=== PATIENT | male | born 1940 | race Caucasian/White ===

== ENCOUNTER → 2017-01-23 | Outpatient (CLI) | payer OTHER ==
[~2017-01-23] MED LIST: ASPI81TA11 PO; ATOR40TA16 PO; CARV12.52 PO; CLOP75TA PO; FENT75DI T-DERMAL; FURO40TA PO; ISOS60TA PO; METF850T PO; NITR0.4S SL; OSEL75 PO; PERC10TA27 PO; TEMA30CA PO
--- NOTE | 2017-01-23 11:40 | RADRPT ---
EXAM DATE/TIME: 01/23/2017 00:00 [facility] COMPARISON: CT ABDOMEN & PELVIS W/O CONTRAST, February 12, 2013, 19:10. INDICATIONS : Peripheral vascular disease TECHNIQUE: Five-station segmental examination of the lower extremities was performed pre and post extercise. Pulsed-cuff waveform tracings and pressures were recorded. Ankle-brachial indices and toe-brachial indices were calculated. PRESSURES (mmHg): Pre Exercise: Brachial (arm): Right 137 Left 147 Lower Thigh: Right 188 Left 206 Calf: Right 183 Left CNO >220 Ankle: Right 193 Left 192 GIORGIO: Right 1.31 Left 1.31 TBI: Right 0.42 Left 0.75 Post Exercise: Brachial (arm): Left 172 Not applicable Ankle: Right 216 Left 209 PULSED CUFF WAVEFORMS: Demonstrate normal amplitude bilaterally. CONCLUSION: 1. Mildly diminished preexercise TBI on the right. 2. The ABIs are elevated both pre-and post exercise. There is a fairly normal-appearing waveform. Thi s would suggest possibility of densely calcified, non-compressible vessels. This limits the sensitivi ty of GIORGIO testing. CT angiography with runoff could be performed for more definitive assessment. Mark Mims MD on January 23, 2017 at 11:36 Board Certified Radiologist. This report was verified electronically.
== END ==
LOC: HCAV 10:26
DX: I73.9 Peripheral vascular disease, unspecified (principal)
CPT/HCPCS: 93924

== ENCOUNTER 2017-04-08 08:04 | Emergency (ER) | payer OTHER ==
[~2017-04-08] VITALS: Ht 182.9 cm; Wt 87.6 kg
[2017-04-08 08:08] VITALS: BP 138/83; PULSE 74; RESP 16; TEMP 98.1; O2SAT 95
--- NOTE | 2017-04-08 08:29 | PD ---
HPI Chief Complaint: Back/ Neck Pain or Injury Time Seen by Provider: 08:17 Travel History International Travel<30 days: No Contact w/Intl Traveler<30days: No Traveled to known affect area: No History of Present Illness HPI This 77-year-old man who presents to the Department of low back pain. Is a history of chronic low back problems, uses fentanyl patch and takes Lortab daily for back pain, multiple back surgeries. He states yesterday he was helping pull a tree down pulling on the applying tension to a rope when it snapped and he fell backward landing on his back. He has pain on his left flank. Did not hit his head. He is on aspirin and Plavix. States today's having worsening back pain today came to the emergency department. No numbness or tingling or weakness. No gait problems. No other complaints. History Past Medical History Narrative Medical CAD, CABG Diabetes Hyperlipidemia Hypertension Tetanus Vaccination: Unknown Social History Alcohol Use: Yes (OCCASIONALLY beer) Tobacco Use: No (FORMER 1 PPD; QUIT ) Allergies-Medications (Allergen,Severity, Reaction): Coded Allergies: Pseudoephedrine (Verified Allergy, Severe, INAILITY TO URINATE, 04/08/17) Reported Meds & Prescriptions Reported Meds & Active Scripts Active Reported Aspirin EC (Aspirin) 81 Mg Tabdr 81 Mg PO DAILY Temazepam 30 Mg Cap 30 Mg PO HS PRN Percocet (Oxycodone-Acetaminophen) 10-325 mg Tab 1 Tab PO Q6H PRN Nitrostat SL (Nitroglycerin) 0.4 Mg Subl 0.4 Mg SL DIRECTED PRN 1 tablet under the tongue as needed for chest pain. Repeat every 5 minutes for a total of 3 DOSES or call 911 if NO relief. Metformin (Metformin HCl) 850 Mg Tab 850 Mg PO TIDPC With meals Isosorbide Mononitrate ER (Isosorbide Mononitrate) 60 Mg Tab 60 Mg PO DAILY Furosemide 40 Mg Tab 40 Mg PO EVERY OTHER DAY PRN Fentanyl Patch 72 HR (Fentanyl) 75 Mcg/Hr Patch 100 Mcg T-DERMAL Q72H Remove old patch when new one placed. Clopidogrel (Clopidogrel Bisulfate) 75 Mg Tab 75 Mg PO DAILY Carvedilol 12.5 Mg Tab 12.5 Mg PO BID Atorvastatin (Atorvastatin Calcium) 40 Mg Tab 40 Mg PO HS Review of Systems Except as stated in HPI: all other systems reviewed are Neg Physical Exam Narrative GENERAL: Well-appearing 77-year-old man, no acute distress. SKIN: Focused skin assessment warm/dry. HEAD: Atraumatic. Normocephalic. EYES: Pupils equal and round. No scleral icterus. No injection or drainage. NECK: Trachea midline. Moves neck freely. CARDIOVASCULAR: Regular rate and rhythm. No murmur appreciated. RESPIRATORY: No accessory muscle use. Clear to auscultation. Breath sounds equal bilaterally. GASTROINTESTINAL: Abdomen soft, non-tender, nondistended. Hepatic and splenic margins not palpable. MUSCULOSKELETAL: No obvious deformities. Multiple surgical scars in the back. No step-offs deformities tenderness or ecchymosis. Minimal tenderness in the left flank. Data Data Last Documented VS Vital Signs Date Time Temp Pulse Resp B/P Pulse Ox O2 Delivery O2 Flow Rate FiO2 04/08/17 08:08 98.1 74 16 138/83 95 Orders Ketorolac Inj (Toradol Inj) (04/08/17 08:30) Spine, Lumbar Comp W/Obliq (04/08/17 ) [facility] Medical Decision Making Medical Screen Exam Complete: Yes Emergency Medical Condition: Yes Interpretation(s) X-ray lumbar spine: Postoperative change with transpedicular screws extending from L2 to L5 with stabilization devices. Severe degenerative change at the L1- L2 and L5-S1 levels. One centimeters retrolisthesis of L5 on S1. Cocktail deformities at the L2-L3 and L3-L4 levels likely from remodeling around stabilization devices. Differential Diagnosis Back strain or sprain, contusion, fracture, other Narrative Course Medical decision making INITIAL: This is a well 77-year-old male with a history of back problems presents with back pain after he fell on his back yesterday. He looks overall well. No numbness tingling weakness or other concerning symptoms. We'll check x-rays, likely negative. Recommend outpatient follow-up. Diagnosis Primary Impression: Back pain Additional Instructions: Continue Lortab and fentanyl as previously prescribed. Follow up with her primary doctor in the next 2-4 days. Return to the emergency department for any new or worsening symptoms. Med/Other Pt SpecificInfo: No Change to Meds Disposition: 01 DISCHARGE HOME Condition: Stable Dionisio Callejas MD Apr 08, 2017 08:29
[2017-04-08] MEDS ORDERED: KETOROLAC TROMETHAMINE 60 MG/2 ML (IM) VIAL IM ONE (08:30)
--- NOTE | 2017-04-08 09:33 | RADHPO ---
EXAM DATE/TIME: 04/08/2017 08:33 [facility] COMPARISON: SPINE LUMBAR LTD (AP & LAT), September 26, 2015, 12:54. INDICATIONS : Back pain post fall. MEDICAL HISTORY : Hypercholesterolemia. Chronic obstructive pulmonary disease. Carcinoma, prostatic. WI. Hypertensi on. CHF. Hepatitis SURGICAL HISTORY : Tonsillectomy. Fusion, lumbar. Prostatectomy. CABG. Right rotator cuff. ENCOUNTER: Initial ACUITY: 1 day PAIN SCORE: 8/10 LOCATION: Lumbar spine FINDINGS: The patient has transpedicular screws at the L2, L3, L4 and L5 levels. There are stabilization devic es at the L2-L3, L3-L4 and L4-L5 disc levels. .there is disc space narrowing at the L5-S1 level. Th ere is posterior subluxation of L5 on S1 in the order of 1 cm. The lumbar vertebral bodies are eitan lly aligned. There is disc space narrowing and subchondral sclerosis at the L1-L2 level. There are prominent osteophytes at this level. There is also disc space narrowing, subchondral sclerosis at os teophytes at the L5-S1 level. The sacroiliac joints are intact. Vascular calcifications are seen. T here does appear to be some concavity to the end plates at the inferior aspect of L2, superior aspect of L3, inferior aspect of L3 and superior aspect of L4. These are likely chronic remodeling around the stabilization devices at these disc levels. CONCLUSION: 1. Postoperative change with transpedicular screws extending from L2 through L5 with stabilization d evices. 2. Severe degenerative change at the L1-L2 and L5-S1 levels. There is 1 cm of retrolisthesis of L5 on S1. 3. Concave deformities at the L2-L3 and L3-L4 levels likely from remodeling around the stabilization devices. Alvarado Stevens MD on April 08, 2017 at 9:10 Board Certified Radiologist. This report was verified electronically.
== END 2017-04-08 09:48 | disposition home or self-care (01) ==
LOC: PHED 08:04
DX: M54.9 Dorsalgia, unspecified (principal); I25.10 Atherosclerotic heart disease of native coronary artery without angina pectoris; E11.9 Type 2 diabetes mellitus without complications; E78.5 Hyperlipidemia, unspecified; I10 Essential (primary) hypertension; Z95.1 Presence of aortocoronary bypass graft; Z87.891 Personal history of nicotine dependence; W18.30XA Fall on same level, unspecified, initial encounter; Y93.H9 Activity, other involving exterior property and land maintenance, building and construction; Y92.096 Garden or yard of other non-institutional residence as the place of occurrence of the external cause; Y99.8 Other external cause status
CPT/HCPCS: 72110; 96372; 99284; J1885

== ENCOUNTER 2018-03-09 21:03 | Observation (INO) | payer OTHER ==
[~2018-03-09] VITALS: Ht 180.3 cm; Wt 85.6 kg
[~2018-03-09 21:03] MED LIST changes: -ASPI81TA11 PO; +ASPI81TA23 PO; -OSEL75 PO
[2018-03-09 21:15] VITALS: BP 177/96; PULSE 79; RESP 16; TEMP 99.1; O2SAT 96
[2018-03-09 21:20] VITALS: BP 177/96; PULSE 80; RESP 16; O2SAT 96
[2018-03-09] MEDS ORDERED: SODIUM CHLORIDE 0.9% FLUSH 10 ML FLUSH IVF PRN (21:45)
[2018-03-09 21:54] LABS: AUTOMATED NEUTROPHIL # 3.5 TH/MM3 (1.8-7.7); BASOPHIL # 0.2 TH/MM3 (0-0.2); BASOPHIL % 3.2 % (0.0-2.0); EOSINOPHIL # 0.3 TH/MM3 (0-0.4); EOSINOPHIL % 4.4 % (0.0-4.0); HEMATOCRIT 37.8 % (39.0-51.0); HEMOGLOBIN 12.1 GM/DL (13.0-17.0); LYMPHOCYTE # 1.6 TH/MM3 (1.0-4.8); MEAN CELL VOLUME 89.6 FL (80.0-100.0); MEAN CORPUSCULAR HEMOGLOBIN 28.6 PG (27.0-34.0); MEAN PLATELET VOLUME 10.2 FL (7.0-11.0); MONO % 10.6 % (0.0-8.0); MONOCYTE # 0.7 TH/MM3 (0-0.9); NEUT % 55.8 % (16.0-70.0); PLATELET COUNT 144 TH/MM3 (150-450); RED BLOOD COUNT 4.23 MIL/MM3 (4.50-5.90); RED CELL DISTRIBUTION WIDTH 13.8 % (11.6-17.2); WHITE BLOOD COUNT 6.3 TH/MM3 (4.0-11.0)
--- NOTE | 2018-03-09 21:54 | RADRPT ---
EXAM DATE/TIME: 03/09/2018 21:40 [facility] COMPARISON: CHEST SINGLE AP, October 19, 2016, 15:04. INDICATIONS : Chest pain. MEDICAL HISTORY : None. Hypertension. Congestive heart failure. Left eye macular degeneration, SURGICAL HISTORY : CABG. ENCOUNTER: Initial ACUITY: 2 days PAIN SCORE: 2/10 LOCATION: Bilateral chest FINDINGS: Surgical sutures of the hysterotomy and prior cryosurgery. Mild diffuse interstitial prominence witho ut new focal pleural or parenchymal opacities. Cardiomediastinal contours are stable. Remainder of th e exam is unchanged. CONCLUSION: 1. No acute abnormality or significant interval change. Bert Forrester MD on March 09, 2018 at 21:52 Board Certified Radiologist. This report was verified electronically.
[2018-03-09 21:56] VITALS: BP_SYST 144; BP_SYST 157; BP_DIAS 75; PULSE 81; RESP 16; O2SAT 94
[2018-03-09 22:01] LABS: CHLORIDE 101 MEQ/L (98-107); SODIUM (NA) 136 MEQ/L (136-145)
[2018-03-09 22:03] LABS: CALCIUM 9.8 MG/DL (8.5-10.1)
[2018-03-09 22:04] LABS: BICARBONATE 29.1 MEQ/L (21.0-32.0); BLOOD UREA NITROGEN 19 MG/DL (7-18); GLUCOSE,RANDOM 145 MG/DL (74-106); MAGNESIUM 1.7 MG/DL (1.5-2.5)
[2018-03-09 22:07] LABS: CREATININE 0.87 MG/DL (0.60-1.30); GLOMERULAR FILTRATION RATE 85 ML/MIN (>89); INTERNATIONAL NORMALIZED RATIO 1.1 RATIO; PROTHROMBIN TIME - PATIENT 11.4 SEC (9.8-11.6)
[2018-03-09 22:12] LABS: TROPONIN I LESS THAN 0.02 NG/ML (0.02-0.05)
[2018-03-09 22:22] VITALS: BP 152/83; PULSE 76; RESP 16; O2SAT 95
[2018-03-09 23:24] VITALS: BP 153/80; PULSE 73; RESP 16; O2SAT 96
[2018-03-10] VITALS (12 sets, daily range): BP systolic 91–184; BP diastolic 9–96; PULSE 65–84; RESP 16–20; TEMP 96.3–97.6; O2SAT 94–97
[2018-03-10] MEDS ORDERED: SODIUM CHLORIDE 0.9% FLUSH 10 ML FLUSH IV FLUSH PRN (00:15)
[2018-03-10] MEDS ORDERED: ALPRAZolam 0.25 MG TAB PO PRN (00:15)
[2018-03-10] MEDS ORDERED: NITROGLYCERIN 0.4 MG SL 25 TABS/BTL SL PRN (00:15)
[2018-03-10 00:59] LABS: TROPONIN I LESS THAN 0.02 NG/ML (0.02-0.05)
[2018-03-10 03:37] LABS: TROPONIN I LESS THAN 0.02 NG/ML (0.02-0.05)
--- NOTE | 2018-03-10 07:59 | EKG ---
Date Performed: 03/10/2018 Time Performed: 03:31:31 PTAGE: 78 years EKG: Sinus rhythm INFERIOR MYOCARDIAL INFARCTION ABNORMAL ECG PREVIOUS TRACING : 03/10/2018 00.19 No significant change from previous tracing noted. DOCTOR: Jamey Augustin Interpretating Date/Time 03/10/2018 07:57:49
--- NOTE | 2018-03-10 08:01 | EKG ---
Date Performed: 03/10/2018 Time Performed: 00:19:52 PTAGE: 78 years EKG: Sinus rhythm POSSIBLE RIGHT VENTRICULAR CONDUCTION DELAY INFERIOR MYOCARDIAL INFARCTION ABNORMAL ECG PREVIOUS TRACING : 03/09/2018 21.09 No significant change from previous tracing noted. DOCTOR: Jamey Augustin Interpretating Date/Time 03/10/2018 08:00:39
--- NOTE | 2018-03-10 08:07 | EKG ---
Date Performed: 03/09/2018 Time Performed: 21:09:19 PTAGE: 78 years EKG: Sinus rhythm INFERIOR MYOCARDIAL INFARCTION ABNORMAL ECG PREVIOUS TRACING : 10/19/2016 15.32 No significant change from previous tracing noted. DOCTOR: Jamey Augustin Interpretating Date/Time 03/10/2018 08:06:06
[2018-03-10] MEDS: SODIUM CHLORIDE 0.9% FLUSH 10 ML FLUSH IV FLUSH SCH ×2 (08:38→22:37)
--- NOTE | 2018-03-10 09:18 | HHI.HP ---
[facility] Service [facility] Primary Care Physician Jennifer Rodriguez MD Admission Diagnosis Chest pain Diagnoses: (1) Chest pain Chief Complaint: Chest pain Travel History International Travel<30 Days: No Contact w/Intl Traveler <30 Da: No Traveled to Known Affected Are: No History of Present Illness This is a pleasant 78-year-old male patient with a known medical history of diabetes, hyperlipidemia and hypertension who presented to the ED with complaints of chest pain. Patient states that he was out in the garden yesterday afternoon around 4:00 when he developed a left lateral rib pain, was sudden in nature, stabbing and lasted 1 second and went away. Patient states that while he was eating dinner last evening he had this same sensation, at that time took nitroglycerin tablet and the pain went away. Patient states that 15 minutes later he had another episode of left lateral rib pain with similar characteristics which led to his presentation to the ED. Patient rates the pain a 10 out of 10 at its worst. Denies any associated nausea, vomiting, shortness of breath or diaphoresis. Patient does admit that he took his blood pressure yesterday and it was significantly elevated. He does state that he had this sensation before. He admits to history of CABG 20 years ago as well as 11 years ago with multiple stent placements. 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 Last seen 6 months ago. Patient has not had any recent changes to his medications. Does admit to a stress test over one year ago which was reportedly negative. Denies any recent illness including fever, chills, cough, shortness of breath, abdominal pain, nausea, vomiting, diarrhea dysuria. PCP is Dr. Rodriguez. Review of Systems Constitutional: DENIES: Fatigue, Fever, Chills Eyes: DENIES: Diplopia Ears, nose, mouth, throat: DENIES: Vertigo Respiratory: DENIES: Cough, Sputum production, Shortness of breath Cardiovascular: COMPLAINS OF: Chest pain, DENIES: Palpitations, Lower Extremity Edema Gastrointestinal: DENIES: Abdominal pain, Black stools, Bloody stools, Constipation, Diarrhea, Nausea, Vomiting Musculoskeletal: DENIES: Joint pain Hematologic/lymphatic: DENIES: Bruising Neurologic: DENIES: Abnormal gait Psychiatric: COMPLAINS OF: Anxiety Except as stated in HPI: all other systems reviewed are Neg Past Family Social History Past Medical History Hyperlipidemia Hypertension CAD with history of CABG and cardiac stents Diabetes Past Surgical History History of CABG 2 Right rotator cuff surgery 3 Prostatectomy Removal of growth on testicle Penile pump Reported Medications Active Reported Aspirin EC (Aspirin) 81 Mg Tabdr 81 Mg PO DAILY Percocet (Oxycodone-Acetaminophen) 10-325 mg Tab 1 Tab PO Q6H PRN Nitrostat SL (Nitroglycerin) 0.4 Mg Subl 0.4 Mg SL DIRECTED PRN 1 tablet under the tongue as needed for chest pain. Repeat every 5 minutes for a total of 3 DOSES or call 911 if NO relief. Metformin (Metformin HCl) 850 Mg Tab 850 Mg PO TIDPC With meals Isosorbide Mononitrate ER (Isosorbide Mononitrate) 60 Mg Tab 60 Mg PO DAILY Furosemide 40 Mg Tab 40 Mg PO EVERY OTHER DAY PRN Fentanyl Patch 72 HR (Fentanyl) 75 Mcg/Hr Patch 100 Mcg T-DERMAL Q72H Remove old patch when new one placed. Carvedilol 12.5 Mg Tab 12.5 Mg PO BID Atorvastatin (Atorvastatin Calcium) 40 Mg Tab 40 Mg PO HS Allergies: Coded Allergies: pseudoephedrine (Verified Allergy, Severe, INAILITY TO URINATE, 03/09/18) Active Ordered Medications Current Medications Medications (Trade) Dose Ordered Sig/Araseli Route Start Time Stop Time Status Last Admin (NS Flush) 2 ml UNSCH PRN IV FLUSH 03/10/18 00:15 (NS Flush) 2 ml BID IV FLUSH 03/10/18 09:00 03/10/18 08:38 (Nitrostat Sl) 0.4 mg Q5M PRN SL 03/10/18 00:15 (Xanax) 0.25 mg Q8H PRN PO 03/10/18 00:15 (Ecotrin Ec) 81 mg DAILY PO 03/11/18 09:00 (Lipitor) 40 mg HS PO 03/10/18 21:00 (Coreg) 12.5 mg BID PO 03/10/18 21:00 (Lasix) 40 mg EVERY OTHER DAY PRN PO 03/10/18 09:45 (Imdur) 60 mg DAILY PO 03/11/18 09:00 Family History Both maternal and paternal medical history significant for cardiovascular disease per Social History Patient denies current tobacco abuse, states he quit 20 years ago. Patient admits to drinking 2 beers per day. Denies illicit drug use. Physical Exam Vital Signs Vital Signs Date Time Temp Pulse Resp B/P (MAP) Pulse Ox O2 Delivery O2 Flow Rate FiO2 03/10/18 08:00 96.9 77 20 177/96 (123) 96 03/10/18 04:00 96.5 81 20 174/82 (112) 96 03/10/18 03:30 95 21 03/10/18 02:00 75 03/10/18 02:00 97.3 76 20 182/9 (66) 96 03/10/18 01:54 03/10/18 00:34 75 16 162/89 (113) 95 Room Air 03/09/18 23:24 73 16 153/80 (104) 96 Room Air 03/09/18 22:22 76 16 152/83 (106) 95 Room Air 03/09/18 21:56 81 16 144/75 (98) 94 Room Air 157/75 (102) 03/09/18 21:20 80 16 177/96 (123) 96 Room Air 03/09/18 21:15 Room Air 03/09/18 21:15 16 96 Room Air 03/09/18 21:15 96 Room Air 03/09/18 21:15 99.1 79 16 177/96 (123) 96 Physical Exam GENERAL: Well-developed, well-nourished patient in [place]. SKIN: Warm and dry. No rash. HEAD: Normocephalic. Atraumatic. EYES: Pupils equal and round. No scleral icterus. No injection or drainage. ENT: No nasal bleeding or discharge. Mucous membranes pink and moist. NECK: Supple. Trachea midline. CARDIOVASCULAR: Regular rate and rhythm. S1, S2 noted. No murmur appreciated. No chest pain to palpation. RESPIRATORY: No accessory muscle use. Clear to auscultation. Breath sounds equal bilaterally. GASTROINTESTINAL: Abdomen soft, non-tender, nondistended. Normoactive bowel sounds x4. MUSCULOSKELETAL: No obvious deformities. Extremities without clubbing, cyanosis , or edema. NEUROLOGICAL: Awake and alert. No obvious cranial nerve deficits. Motor grossly within normal limits. 5/5 muscle strength in bilateral upper and lower extremities. Normal speech. PSYCHIATRIC: Appropriate mood and affect; insight and judgment normal. Laboratory Laboratory Tests Test 03/09/18 21:15 03/10/18 00:31 03/10/18 03:06 White Blood Count 6.3 Red Blood Count 4.23 Hemoglobin 12.1 Hematocrit 37.8 Mean Corpuscular Volume 89.6 Mean Corpuscular Hemoglobin 28.6 Mean Corpuscular Hemoglobin Concent 32.0 Red Cell Distribution Width 13.8 Platelet Count 144 Mean Platelet Volume 10.2 Neutrophils (%) (Auto) 55.8 Lymphocytes (%) (Auto) 26.0 Monocytes (%) (Auto) 10.6 Eosinophils (%) (Auto) 4.4 Basophils (%) (Auto) 3.2 Neutrophils # (Auto) 3.5 Lymphocytes # (Auto) 1.6 Monocytes # (Auto) 0.7 Eosinophils # (Auto) 0.3 Basophils # (Auto) 0.2 CBC Comment DIFF FINAL Differential Comment Prothrombin Time 11.4 Prothromb Time International Ratio 1.1 Activated Partial Thromboplast Time 25.6 Blood Urea Nitrogen 19 Creatinine 0.87 Random Glucose 145 Calcium Level 9.8 Magnesium Level 1.7 Sodium Level 136 Potassium Level 4.7 Chloride Level 101 Carbon Dioxide Level 29.1 Anion Gap 6 Estimat Glomerular Filtration Rate 85 Total Creatine Kinase 321 248 232 Creatine Kinase MB 10.3 7.8 7.0 Creatine Kinase MB % 3.2 Troponin I LESS THAN 0.02 LESS THAN 0.02 LESS THAN 0.02 Result Diagram: 03/09/18211403/09/182114 Imaging Last Impressions Chest X-Ray 03/09/182133 Signed Impressions: Service Date/Time: Friday, March 09, 2018 21:40 - CONCLUSION: 1. No acute abnormality or significant interval change. Bert Forrester MD Septic Shock Reassessment Septic shock perfusion: reassessment completed Caprini VTE Risk Assessment Caprini VTE Risk Assessment: Mod/High Risk (score >= 2) Caprini Risk Assessment Model Point Value = 1 Point Value = 2 Point Value = 3 Point Value = 5 Age 41-60 Minor surgery BMI > 25 kg/m2 Swollen legs Varicose veins or History of unexplained or recurrent spontaneous Oral contraceptives or hormone replacement Sepsis (< 1 month) Serious lung disease, including pneumonia (< 1 month) Abnormal pulmonary function Acute myocardial infarction Congestive heart failure (< 1 month) History of inflammatory bowel disease Medical patient at bed rest Age 61-74 Arthroscopic surgery Major open surgery (> 45 min) Laparoscopic surgery (> 45 min) Malignancy Confined to bed (> 72 hours) Immobilizing plaster cast Central venous access Age >= 75 History of VTE Family history of VTE Factor V Leiden Prothrombin [id number] Lupus anticoagulant Anticardiolipin antibodies Elevated serum homocysteine Heparin-induced thrombocytopenia Other congenital or acquired thrombophilia Stroke (< 1 month) Elective arthroplasty Hip, pelvis, or leg fracture Acute spinal cord injury (< 1 month) Prophylaxis Regimen Total Risk Factor Score Risk Level Prophylaxis Regimen 0-1 Low Early ambulation 2 Moderate Order ONE of the following: *Sequential Compression Device (SCD) *Heparin 5000 units SQ BID 3-4 Higher Order ONE of the following medications: *Heparin 5000 units SQ TID *Enoxaparin/Lovenox 40 mg SQ daily (WT < 150 kg, CrCl > 30 mL/min) *Enoxaparin/Lovenox 30 mg SQ daily (WT < 150 kg, CrCl > 10-29 mL/min) *Enoxaparin/Lovenox 30 mg SQ BID (WT < 150 kg, CrCl > 30 mL/min) AND/OR *Sequential Compression Device (SCD) 5 or more Highest Order ONE of the following medications: *Heparin 5000 units SQ TID (Preferred with Epidurals) *Enoxaparin/Lovenox 40 mg SQ daily (WT < 150 kg, CrCl > 30 mL/min) *Enoxaparin/Lovenox 30 mg SQ daily (WT < 150 kg, CrCl > 10-29 mL/min) *Enoxaparin/Lovenox 30 mg SQ BID (WT < 150 kg, CrCl > 30 mL/min) AND *Sequential Compression Device (SCD) Assessment and Plan Problem List: (1) Chest pain ICD Code: R07.9 - Chest pain Status: Acute Plan: Patient has been admitted to the chest pain center for observation. Serial EKGs and serial troponins have been ordered for ruling out ACS purposes. EKG reviewed showing sinus rhythm with no ST changes. Controlled rate. Chest x-ray reviewed no acute disease. All chest pain and symptoms have resolved. Vital signs stable. Blood pressure mildly elevated, will restart home medications. CBC and BMP reviewed essentially remarkable. Will restart home aspirin. Patient will undergo Lexiscan to further rule out any ischemia. Further hospitalization treatment plan will depend on nuclear imaging results. Patient stable at this time and agreeable to plan. (2) Hypertension ICD Code: I10 - Hypertension Status: Acute Plan: Continue to monitor blood pressure trends. Will restart BP home medications. Continue to monitor. (3) Hyperlipidemia ICD Code: E78.5 - Hyperlipidemia Status: Acute Plan: Continue home statin. (4) Diabetes ICD Code: E11.9 - Diabetes Status: Acute (5) Coronary artery disease ICD Code: I25.10 - Coronary artery disease Status: Acute Plan: Patient with history of CABG CAD. Will restart home medications. Follow nuclear imaging. DVT prophylaxis: SCDs. Assessment and Plan This is a pleasant 78-year-old male patient with a known medical history of diabetes, hyperlipidemia and hypertension who presented to the ED with complaints of chest pain. Patient states that he was out in the garden yesterday afternoon around 4:00 when he developed a left lateral rib pain, was sudden in nature, stabbing and lasted 1 second and went away. Chest pain rule out ACS vs other etiology History of CAD with CABG and cardiac stents - Patient has been admitted to the chest pain center for observation. Serial EKGs and serial troponins have been ordered for ruling out ACS purposes. - EKG reviewed showing sinus rhythm with no ST changes. Controlled rate. - Chest x-ray reviewed no acute disease. - All chest pain and symptoms have resolved. Vital signs stable. Blood pressure mildly elevated, will restart home medications. Continue aspirin. - CBC and BMP reviewed essentially remarkable. Will restart home aspirin. - Patient will undergo Lexiscan to further rule out any ischemia tomorrow am. Since patient had coffee this am, he will need to wait overnight for scan. - Further hospitalization treatment plan will depend on nuclear imaging results. Patient stable at this time and agreeable to plan. Hypertension, chronic: Continue to monitor blood pressure trends. Will restart BP home medications. Hyperlipidemia, chronic: Continue home statin. Type 2 diabetes mellitus, chronic: ACCU check ACHS. sliding scale, cover as needed. Monitor blood sugar trends. DVT Prophylaxis: SCDs. Heparin. Discussed Condition With DC tomorrow after Lexiscan. Analisa Matos March 10, 2018 09:18
[2018-03-10] MEDS ORDERED: FUROSEMIDE 40 MG TAB PO PRN (09:45)
[2018-03-10] MEDS ORDERED: DEXTROSE 50% IN WATER 50 ML VIAL(D50) IV PUSH PRN (11:00)
[2018-03-10] MEDS ORDERED: GLUCAGON 1 MG/ML VIAL OTHER PRN (11:00)
[2018-03-10] MEDS ORDERED: ISOSORBIDE MONONITRATE 60 MG CR TAB (IMDUR) PO ONE (11:15)
[2018-03-10] MEDS ORDERED: CARVEDILOL 12.5 MG TAB PO ONE (11:15)
[2018-03-10] MEDS ORDERED: ASPIRIN 81 MG CHEW TAB CHEW ONE (11:15)
[2018-03-10] MEDS ORDERED: FUROSEMIDE 40 MG TAB PO ONE (11:15)
[2018-03-10] MEDS: SODIUM CHLOR 0.9% 1000 ML INJ 1,000 ML IV SCH ×2 (11:28→22:00)
[2018-03-10] MEDS: INSULIN ASPART SUPPLEMENTAL SCALE SQ SCH ×4 (12:00→21:00)
[2018-03-10] MEDS ORDERED: cloNIDine HCL 0.1 MG TAB PO PRN (13:45)
[2018-03-10] MEDS ORDERED: CARVEDILOL 12.5 MG TAB PO SCH (21:00)
[2018-03-10] MEDS ORDERED: HEPARIN SODIUM - SQ 10,000 UNITS/ML VIAL SQ SCH (21:00)
[2018-03-10] MEDS ORDERED: ATORVASTATIN 40 MG TAB PO SCH (21:00)
[2018-03-10] MEDS ORDERED: oxyCODONE/ACETAMINOPHEN 10 MG/325 MG TAB PO ONE (23:15)
[2018-03-11] VITALS: BP 125/67; PULSE 56; RESP 20; TEMP 96; O2SAT 96
[2018-03-11 04:00] VITALS: BP 126/72; PULSE 71; RESP 20; TEMP 97.1; O2SAT 98
[2018-03-11] MEDS ORDERED: MORPHINE SULFATE 2 MG/ML SYRINGE IV PUSH ONE (04:00)
--- NOTE | 2018-03-11 06:28 | PD ---
HPI Chief Complaint: Chest Pain Time Seen by Provider: 21:34 Travel History International Travel<30 days: No Contact w/Intl Traveler<30days: No Traveled to known affect area: No History of Present Illness HPI 78-year-old male presents to the emergency department for complaint of left- sided chest pain. Symptoms occurred around 430 and then again around 530. Patient states symptoms were minutes in duration. No associated referred neck jaw back shoulder arm pain. Patient has known coronary vessel disease and undergone CABG 4 vessels once and 5 vessels and additional time. Patient is currently having no chest pain at this time. Patient denies associated sweats shortness of breath or referred neck jaw back shoulder arm pain. Patient denies any abdominal pain. Patient denies any recent long distance travel protracted bedrest or surgical procedure and has not noted any pain in his lower extremities or edema of his lower extremities. Patient's primary care provider is Dr. Rodriguez and his account liaison hospice is . Current pain 0/10 intensity. Patient is unable to identify exacerbating or alleviating factors. PFSH Past Medical History Narrative Medical CAD CABG dyslipidemia CHF COPD CAD diabetes; nursing notes reviewed Hx Anticoagulant Therapy: Yes (ASPIRIN) Arthritis: Yes (left hand) Asthma: No Autoimmune Disease: No Blood Disorders: No Anxiety: No Depression: No Heart Rhythm Problems: No Cancer: Yes (PROSTATE) Cardiac Catheterization: Yes Cardiovascular Problems: Yes High Cholesterol: Yes Chemotherapy: No Chest Pain: Yes Congestive Heart Failure: Yes COPD: Yes Cerebrovascular Accident: No Coronary Artery Disease: Yes Diabetes: Yes Patient Takes Glucophage: Yes (METFORMIN) Diminished Hearing: No Endocrine: Yes Gastrointestinal Disorders: No Genitourinary: Yes Hepatitis: Yes Hypertension: Yes Immune Disorder: No Implanted Vascular Access Dvce: Yes Kidney Stones: No Musculoskeletal: Yes Neurologic: Yes Psychiatric: No Reproductive: No Respiratory: No Immunizations Current: Yes (SHINGLES VACCINE 2013) Myocardial Infarction: Yes (X1) Pneumonia: Yes Renal Failure: No Sleep Apnea: Yes (POSSIBLE) Thyroid Disease: No Tetanus Vaccination: Unknown Influenza Vaccination: Yes Past Surgical History Abdominal Surgery: No Body Medical Devices: CARDIAC STENT Cardiac Surgery: Yes (HEART BY-PASS 1994; 2004) Coronary Artery Bypass Graft: Yes (BYPASSX 2 TIMES- STATED 1ST BYPASS 4 AND 2ND 5 VESSELS ) Coronary Stent: Yes (4 STENTS) Ear Surgery: No Endocrine Surgery: No Eye Surgery: No Gynecologic Surgery: No Hysterectomy: No Neurologic Surgery: Yes (LUMBAR LAMINECTOMY 1997, total back surgeries x 6 recent mid back) Oral Surgery: No Prostatectomy: Yes (-2012) Thoracic Surgery: No Tonsillectomy: Yes Other Surgery: Yes (CARDIAC STENTS X 4) Social History Alcohol Use: Yes (OCCASIONALLY beer) Tobacco Use: No (FORMER 1 PPD; QUIT ) Substance Use: No Allergies-Medications (Allergen,Severity, Reaction): Coded Allergies: pseudoephedrine (Verified Allergy, Severe, INAILITY TO URINATE, 03/09/18) Reported Meds & Prescriptions Reported Meds & Active Scripts Active Reported Aspirin EC (Aspirin) 81 Mg Tabdr 81 Mg PO DAILY Percocet (Oxycodone-Acetaminophen) 10-325 mg Tab 1 Tab PO Q6H PRN Nitrostat SL (Nitroglycerin) 0.4 Mg Subl 0.4 Mg SL DIRECTED PRN 1 tablet under the tongue as needed for chest pain. Repeat every 5 minutes for a total of 3 DOSES or call 911 if NO relief. Metformin (Metformin HCl) 850 Mg Tab 850 Mg PO TIDPC With meals Isosorbide Mononitrate ER (Isosorbide Mononitrate) 60 Mg Tab 60 Mg PO DAILY Furosemide 40 Mg Tab 40 Mg PO EVERY OTHER DAY PRN Fentanyl Patch 72 HR (Fentanyl) 75 Mcg/Hr Patch 100 Mcg T-DERMAL Q72H Remove old patch when new one placed. Carvedilol 12.5 Mg Tab 12.5 Mg PO BID Atorvastatin (Atorvastatin Calcium) 40 Mg Tab 40 Mg PO HS Review of Systems Except as stated in HPI: all other systems reviewed are Neg Physical Exam Narrative GENERAL: Well-developed well-nourished male no acute distress no respiratory distress SKIN: Warm and dry. HEAD: Normocephalic. EYES: No scleral icterus. No injection or drainage. NECK: Supple, trachea midline. No JVD or lymphadenopathy. CARDIOVASCULAR: Regular rate and rhythm without murmurs, gallops, or rubs. RESPIRATORY: Breath sounds equal bilaterally. No accessory muscle use. GASTROINTESTINAL: Abdomen soft, non-tender, nondistended. MUSCULOSKELETAL: No cyanosis, or edema. BACK: Nontender without obvious deformity. No CVA tenderness. Data Data Last Documented VS Vital Signs Date Time Temp Pulse Resp B/P (MAP) Pulse Ox O2 Delivery O2 Flow Rate FiO2 03/09/18 23:24 73 16 153/80 (104) 96 Room Air 03/09/18 21:15 99.1 Orders Orders Electrocardiogram (03/09/18 21:34) Basic Metabolic Panel (Bmp) (03/09/18 21:34) Ckmb (Isoenzyme) Profile (03/09/18 21:34) Complete Blood Count With Diff (03/09/18 21:34) Magnesium (Mg) (03/09/18:34) Prothrombin Time / Inr (Pt) (03/09/18:34) Act Partial Throm Time (Ptt) (03/09/18:34) Troponin I (03/09/18 21:34) Chest, Single Ap (03/09/18:34) Ecg Monitoring (03/09/18:34) Bilateral Bp Monitoring (03/09/18:34) Iv Access Insert/Monitor (03/09/18:34) Oximetry (03/09/18:34) Oxygen Administration (03/09/18:34) Sodium Chloride 0.9% Flush (Ns Flush) (03/09/18 21:45) CKMB (03/09/18 21:15) CKMB% (03/09/18 21:15) Admit Order (Ed Use Only) (03/10/18 ) Workers' Compensation Mediator / Telemetry CHICO.Q8H (03/10/18 00:07) Diet Heart Healthy (03/10/18 Breakfast) Activity Oob With Assistance (03/10/18 00:07) Notify Dr: Other (03/10/18 00:07) Activity Bed Rest With Brp (03/10/18 00:07) Vital Signs (Adult) Q4H (03/10/18 00:07) Cardiac Rhythm .As Directed (03/10/18 00:07) Notify Dr: Other .PRN (03/10/18 00:07) Notify DrHai Parameters (03/10/18 00:07) Resp Oxygen Nasal Cannula (03/10/18 ) Ckmb (Isoenzyme) Profile (03/10/18 00:15) Ckmb (Isoenzyme) Profile (03/10/18 03:15) Troponin I (03/10/18 00:15) Troponin I (03/10/18 03:15) Electrocardiogram (03/10/18 00:15) Electrocardiogram (03/10/18 03:15) ^ Obtain (03/10/18 00:07) Sodium Chloride 0.9% Flush (Ns Flush) (03/10/18 00:15) Sodium Chloride 0.9% Flush (Ns Flush) (03/10/18 09:00) Nitroglycerin Sl (Nitrostat Sl) (03/10/18 00:15) Alprazolam (Xanax) (03/10/18 00:15) Workers' Compensation Mediator / Telemetry CHICO.Q8H (03/10/18 00:07) CKMB (03/10/18 00:31) CKMB% (03/10/18 00:31) CKMB (03/10/18 03:06) CKMB% (03/10/18 03:06) Labs Laboratory Tests Test 03/09/18 21:15 White Blood Count 6.3 TH/MM3 Red Blood Count 4.23 MIL/MM3 Hemoglobin 12.1 GM/DL Hematocrit 37.8 % Mean Corpuscular Volume 89.6 FL Mean Corpuscular Hemoglobin 28.6 PG Mean Corpuscular Hemoglobin Concent 32.0 % Red Cell Distribution Width 13.8 % Platelet Count 144 TH/MM3 Mean Platelet Volume 10.2 FL Neutrophils (%) (Auto) 55.8 % Lymphocytes (%) (Auto) 26.0 % Monocytes (%) (Auto) 10.6 % Eosinophils (%) (Auto) 4.4 % Basophils (%) (Auto) 3.2 % Neutrophils # (Auto) 3.5 TH/MM3 Lymphocytes # (Auto) 1.6 TH/MM3 Monocytes # (Auto) 0.7 TH/MM3 Eosinophils # (Auto) 0.3 TH/MM3 Basophils # (Auto) 0.2 TH/MM3 CBC Comment DIFF FINAL Differential Comment Prothrombin Time 11.4 SEC Prothromb Time International Ratio 1.1 RATIO Activated Partial Thromboplast Time 25.6 SEC Blood Urea Nitrogen 19 MG/DL Creatinine 0.87 MG/DL Random Glucose 145 MG/DL Calcium Level 9.8 MG/DL Magnesium Level 1.7 MG/DL Sodium Level 136 MEQ/L Potassium Level 4.7 MEQ/L Chloride Level 101 MEQ/L Carbon Dioxide Level 29.1 MEQ/L Anion Gap 6 MEQ/L Estimat Glomerular Filtration Rate 85 ML/MIN Total Creatine Kinase 321 U/L Creatine Kinase MB 10.3 NG/ML Creatine Kinase MB % 3.2 % Troponin I LESS THAN 0.02 NG/ML MDM Medical Decision Making Medical Screen Exam Complete: Yes Emergency Medical Condition: Yes Medical Record Reviewed: Yes Interpretation(s) Troponin I less than 0.02, not elevated EKG sinus rhythm no acute ST segment elevation injury pattern or ectopy Last Impressions Chest X-Ray 03/09/18 [id number] Signed Impressions: Service Date/Time: Friday, March 09, 2018 21:40 - CONCLUSION: 1. No acute abnormality or significant interval change. Bert Forrester MD CBC & BMP Diagram 03/09/18 21:15 Calcium Level 9.8, Magnesium Level 1.7 Vital Signs Date Time Temp Pulse Resp B/P (MAP) Pulse Ox O2 Delivery O2 Flow Rate FiO2 03/09/18 23:24 73 16 153/80 (104) 96 Room Air 03/09/18 22:22 76 16 152/83 (106) 95 Room Air 03/09/18 21:56 81 16 144/75 (98) 94 Room Air 157/75 (102) 03/09/18 21:20 80 16 177/96 (123) 96 Room Air 03/09/18 21:15 Room Air 03/09/18 21:15 16 96 Room Air 03/09/18 21:15 96 Room Air 03/09/18 21:15 99.1 79 16 177/96 (123) 96 Differential Diagnosis Chest pain, ACS, AR, chest wall pain, pleurisy, costochondritis, rib fracture, pneumothorax, atypical chest pain Narrative Course Patient placed on night monitor IV access obtained specimens collected and sent for resulting; patient currently without chest pain therefore no nitroglycerin administered Patient aware EKG shows no acute ST elevation injury pattern or ectopy Cardiac enzymes are found to be in normal range Patient is aware of plan for observation admission with chest pain center protocol in view of history of cardiac disease and multiple bypass surgeries. Patient was agreeable with observation admission. Physician Communication Physician Communication discussed with DR Amezquita for actuary clerk Diagnosis Primary Impression: Chest pain Additional Impression: Coronary artery disease Admitting Information Admitting Physician Requests: Observation Merari Neff MD March 11, 2018 06:28
[2018-03-11] MEDS ORDERED: ASPIRIN EC 81 MG TABEC PO SCH (09:00)
[2018-03-11] MEDS ORDERED: ISOSORBIDE MONONITRATE 60 MG CR TAB (IMDUR) PO SCH (09:00)
== END 2018-03-11 06:13 | disposition left against medical advice (07) ==
LOC: PHED 21:03 → PHEDA 03-10 00:10 → PH3A 03-10 01:58
PROVIDERS: ADMIT Hospitalist; ATTEND Hospitalist
DX: R07.89 Other chest pain (principal); E78.5 Hyperlipidemia, unspecified; E11.9 Type 2 diabetes mellitus without complications; I25.10 Atherosclerotic heart disease of native coronary artery without angina pectoris; I11.0 Hypertensive heart disease with heart failure; I50.9 Heart failure, unspecified; J44.9 Chronic obstructive pulmonary disease, unspecified; I25.2 Old myocardial infarction; R94.31 Abnormal electrocardiogram [ECG] [EKG]; K75.9 Inflammatory liver disease, unspecified; F41.9 Anxiety disorder, unspecified; M19.042 Primary osteoarthritis, left hand; Z95.1 Presence of aortocoronary bypass graft; Z95.5 Presence of coronary angioplasty implant and graft; Z79.82 Long term (current) use of aspirin; Z79.84 Long term (current) use of oral hypoglycemic drugs; Z87.891 Personal history of nicotine dependence
CPT/HCPCS: 71045; 80048; 82550; 82552; 82948; 83735; 84484; 85025; 85610; 85730; 93005; 96361; 96372; 96374; 99285; G0378; J1644; J1815; J2270; J7030

== ENCOUNTER 2018-03-11 07:48 | Observation (INO) | payer OTHER ==
--- NOTE | 2018-03-11 08:23 | PD ---
HPI Chief Complaint: Chest pain Time Seen by Provider: 08:23 Travel History International Travel<30 days: No Contact w/Intl Traveler<30days: No Traveled to known affect area: No History of Present Illness HPI 78-year-old male came to the emergency room with history of chest pain that happened 2 days ago. Patient was admitted for chest pain rule out ACS. He was supposed to get his stress test done today but patient left because of his chronic low back pain to get fentanyl patch at home. Patient says that he was told that he could go home and get his medications and then return to get the stress test done. Hence he is here in the emergency room now. Patient is chest pain-free. He had 3 sets of labs done during his admission past 24 hours. Vital signs are stable. Patient does have significant history of coronary artery disease including 2 different CABG at different times. His materials planner is Dr. Augustin. [facility] Past Medical History Narrative Medical List of his past medical, surgical, social and family history is reviewed from the nursing note. Hx Anticoagulant Therapy: Yes (ASPIRIN) Arthritis: Yes (left hand) Asthma: No Autoimmune Disease: No Blood Disorders: No Anxiety: No Depression: No Heart Rhythm Problems: No Cancer: Yes (PROSTATE) Cardiac Catheterization: Yes Cardiovascular Problems: Yes High Cholesterol: Yes Chemotherapy: No Chest Pain: Yes Congestive Heart Failure: Yes COPD: Yes Cerebrovascular Accident: No Coronary Artery Disease: Yes Diabetes: Yes Diminished Hearing: No Endocrine: Yes Gastrointestinal Disorders: No Genitourinary: Yes Hepatitis: Yes Hypertension: Yes Immune Disorder: No Implanted Vascular Access Dvce: Yes Kidney Stones: No Musculoskeletal: Yes Neurologic: Yes Psychiatric: No Reproductive: No Respiratory: No Immunizations Current: Yes (SHINGLES VACCINE 2013) Myocardial Infarction: Yes (X1) Pneumonia: Yes Renal Failure: No Sleep Apnea: Yes (POSSIBLE) Thyroid Disease: No Past Surgical History Abdominal Surgery: No Body Medical Devices: CARDIAC STENT Cardiac Surgery: Yes (HEART BY-PASS 1994; 2004) Coronary Artery Bypass Graft: Yes (BYPASSX 2 TIMES- STATED 1ST BYPASS 4 AND 2ND 5 VESSELS ) Coronary Stent: Yes (4 STENTS) Ear Surgery: No Endocrine Surgery: No Eye Surgery: No Gynecologic Surgery: No Hysterectomy: No Neurologic Surgery: Yes (LUMBAR LAMINECTOMY 1997, total back surgeries x 6 recent mid back) Oral Surgery: No Prostatectomy: Yes (-2012) Thoracic Surgery: No Tonsillectomy: Yes Other Surgery: Yes (CARDIAC STENTS X 4) Social History Alcohol Use: Yes (OCCASIONALLY beer) Tobacco Use: No (FORMER 1 PPD; QUIT ) Substance Use: No Allergies-Medications (Allergen,Severity, Reaction): Coded Allergies: pseudoephedrine (Verified Allergy, Severe, INAILITY TO URINATE, 03/09/18) Comments List of his allergies reviewed from the nursing note. Reported Meds & Prescriptions Reported Meds & Active Scripts Active Reported Aspirin EC (Aspirin) 81 Mg Tabdr 81 Mg PO DAILY Percocet (Oxycodone-Acetaminophen) 10-325 mg Tab 1 Tab PO Q6H PRN Nitrostat SL (Nitroglycerin) 0.4 Mg Subl 0.4 Mg SL DIRECTED PRN 1 tablet under the tongue as needed for chest pain. Repeat every 5 minutes for a total of 3 DOSES or call 911 if NO relief. Metformin (Metformin HCl) 850 Mg Tab 850 Mg PO TIDPC With meals Isosorbide Mononitrate ER (Isosorbide Mononitrate) 60 Mg Tab 60 Mg PO DAILY Furosemide 40 Mg Tab 40 Mg PO EVERY OTHER DAY PRN Fentanyl Patch 72 HR (Fentanyl) 75 Mcg/Hr Patch 100 Mcg T-DERMAL Q72H Remove old patch when new one placed. Carvedilol 12.5 Mg Tab 12.5 Mg PO BID Atorvastatin (Atorvastatin Calcium) 40 Mg Tab 40 Mg PO HS Narrative Medication List of his home medications reviewed from the nursing note. Review of Systems Except as stated in HPI: all other systems reviewed are Neg Cardiovascular: Positive: Chest Pain or Discomfort Physical Exam Narrative GENERAL: Awake, alert, anxious, no obvious distress SKIN: Focused skin assessment warm/dry. HEAD: Atraumatic. Normocephalic. EYES: Pupils equal and round. No scleral icterus. No injection or drainage. ENT: No nasal bleeding or discharge. Mucous membranes pink and moist. NECK: Trachea midline. No JVD. CARDIOVASCULAR: Regular rate and rhythm. No murmur appreciated. RESPIRATORY: No accessory muscle use. Clear to auscultation. Breath sounds equal bilaterally. GASTROINTESTINAL: Abdomen soft, non-tender, nondistended. Hepatic and splenic margins not palpable. MUSCULOSKELETAL: No obvious deformities. No clubbing. No cyanosis. No edema. NEUROLOGICAL: Awake and alert. No obvious cranial nerve deficits. Motor grossly within normal limits. Normal speech. PSYCHIATRIC: Appropriate mood and affect; insight and judgment normal. Data Data Orders Orders Admit Order (Ed Use Only) (03/11/18 09:02) MDM Medical Decision Making Medical Screen Exam Complete: Yes Emergency Medical Condition: Yes Medical Record Reviewed: Yes Interpretation(s) Twelve-lead EKG was reviewed by me. Normal sinus rhythm, normal axis, nonspecific ST-T wave changes, old inferior MS. Heart rate of 71 bpm. Differential Diagnosis Coronary artery disease, ACS Narrative Course 8:41 AM I just discussed with Dr. Augustin about patient's situation. He is said that he will not be able to see him in anytime soon to get a stress test in the office. His last nuclear stress test was 2 and half years ago. At this point he recommended to just get the test done in the hospital. I put a call out for the hospitalist for readmission into the chest pain center for the stress test. Procedures EKG Prior to Arrival: No Physician Communication Physician Communication Dr. Augustin Diagnosis Primary Impression: Chest pain Qualified Codes: R07.9 - Chest pain, unspecified Admitting Information Admitting Physician Requests: Observation Marybel Rodas MD March 11, 2018 08:23
[2018-03-11 09:10] VITALS: BP 155/92; PULSE 76; RESP 16; TEMP 97.6; O2SAT 96
[2018-03-11 10:03] VITALS: BP 152/90; PULSE 69; RESP 19; TEMP 97; O2SAT 98
[2018-03-11 10:06] VITALS: PULSE 73
[2018-03-11] MEDS ORDERED: NITROGLYCERIN 0.4 MG SL 25 TABS/BTL SL PRN (10:45)
[2018-03-11] MEDS ORDERED: SODIUM CHLORIDE 0.9% FLUSH 10 ML FLUSH IV FLUSH PRN (10:45)
[2018-03-11] MEDS ORDERED: FUROSEMIDE 40 MG TAB PO PRN (10:45)
--- NOTE | 2018-03-11 10:52 | HHI.PR ---
Subjective Remarks This is a 78-year-old male patient with a known medical history of diabetes, hyperlipidemia and hypertension who came back to the ED to get stress test done. Patient was just admitted yesterday and seen by my partner Analisa where H&P was performed. Apparently the patient has been ruled out for acute coronary event with serial cardiac enzymes that are negative, serial EKGs without any changes. It was planned that the patient undergo myocardial perfusion study this morning. However patient states that he was in so much pain that someone told him that were a red outfit that he can go home and use his medication which is a fentanyl patch and come back to get the stress test done. Since the patient presented to the hospital he has been asymptomatic. Patient did leave out at 613 this morning and came back to the emergency department at 748 this morning. Patient indicates that he has not ate or drank anything since he left to go get his medication. Patient was evaluated by emergency room physician who did contact his paint mixer Dr. Stock'mary kate, who indicated that he would not be able to have the patient get a stress test done for couple weeks. Because of that reason the emergency room physician requested that the patient to be readmitted to the hospital for continued care and management. Patient indicates that he has been asymptomatic during his stay in the hospital. I discussed with him the possibility of performing a stress test, I notified him that he has been ruled out for any acute cardiac event with serial cardiac enzymes and EKGs that were done yesterday. Patient wants to pursue stress test at this time. Objective Vitals Vital Signs Date Time Temp Pulse Resp B/P (MAP) Pulse Ox O2 Delivery O2 Flow Rate FiO2 03/11/18 10:06 73 03/11/18 10:03 97.0 69 19 152/90 (110) 98 03/11/18 09:10 97.6 76 16 155/92 (113) 96 Objective Remarks GENERAL: Well-developed, well-nourished, in no acute distress. alert and orientated HEENT: Head is normocephalic without any lesions or masses noted. Facial features are symmetric. Eyes: Extraocular muscles are intact. Conjunctivae were clear. NECK: Supple without any masses. Trachea midline no deviation. No JVD, CARDIAC: Regular rhythm, regular rate. S1/S2 are heard. No murmurs gallops or rubs. LUNGS: Clear to auscultation bilaterally. No wheeze, rhonchi or rales. No use of accessory muscles on inspiration or expiration. ABDOMEN: Soft, nontender. Nondistended. Bowel sounds heard in all 4 quadrants. No organomegaly or masses. Negative rebound, negative guarding EXTREMITIES: No edema, pulses are equal bilaterally. No cyanosis or clubbing NEUROLOGY: Mood and affect appear appropriate. Cranial nerves II through XII grossly intact. Moving all extremities, speech is clear Urinary Catheter: No Vascular Central Line Catheter: No A/P Assessment and Plan Chest pain -Patient with increased risk factors include hypertension, coronary disease status post CABG/stenting, -Patient has been ruled out for acute coronary event with serial cardiac enzymes that are negative -Serial EKGs were reviewed and show sinus rhythm without any changes -Myocardial perfusion study was performed and indicated no signs of ischemia -Patient continued on aspirin, Imdur, Coreg, statin Hypertension, chronic: -Home medications were continued Hyperlipidemia, chronic: -Home medications were continued Type 2 diabetes mellitus, chronic: -Accu-Cheks with sliding scale insulin -Diabetic diet DVT Prophylaxis: -Subcutaneous heparin Discharge Planning Discharge home in stable condition Activity: Ad felipe. Diet: Healthy heart diet Medication per medication reconciliation Follow-up with primary medical doctor in 1 week Efrain Leary March 11, 2018 10:52
[2018-03-11] MEDS ORDERED: HEPARIN SODIUM - SQ 10,000 UNITS/ML VIAL SQ SCH (11:00)
[2018-03-11] MEDS ORDERED: ONDANSETRON ODT 4 MG TAB SL PRN (11:15)
[2018-03-11 12:00] VITALS: BP 156/94; PULSE 68; RESP 19; TEMP 98.4; O2SAT 95
[2018-03-11] MEDS ORDERED: ACETAMINOPHEN 325 MG TAB PO ONE (13:30)
[2018-03-11] MEDS ORDERED: REGADENOSON INJ 0.4 MG/5 ML SYR IV ONE (13:34)
--- NOTE | 2018-03-11 15:06 | RADRPT ---
EXAM DATE: 03/11/2018 2:58 PM EDT AGE/SEX: 78 years / Male INDICATIONS:Angina. Congestive heart failure Chest pain. CLINICAL DATA: This is the patient's initial encounter. Patient reports that signs and symptoms have been present for 1 day and indicates a pain score of 10/10. MEDICAL/SURGICAL HISTORY: Diabetes mellitus type II. Hypertension. Chronic obstructive pulmon fausto disease. Prostate cancer. Fusion, lumbar. Coronary artery stent. CABG. COMPARISON: No prior [facility] exams available for comparison. DOSE: 26.5 mCi Tc 99m Myoview at stress 8.2 mCi [id number] at rest 0.4 mg Lexiscan STRESS SYMPTOMS: Headache. EJECTION FRACTION: 61 % TECHNIQUE: The patient underwent pharmacologic stress with infusion of prescribed dose. Continuous ECG tracing was monitored during stress. Gated SPECT imaging was performed after stress and conventi onal SPECT imaging was performed at rest. The examination was performed on a SPECT/CT scanner, both attenuation and non-corrected datasets were reviewed. FINDINGS: Distribution: The maximum perfused segment at stress is in the septal wall. Perfusion Study: The pattern of perfusion at stress is within normal limits. Gated Study: There is some akinesis of the septal wall. Otherwise, the rest of the ventricle demonst rates good contraction. The ejection fraction is calculated at 61%. RISK CATEGORY: Low (<1% Annual Motality Rate) CONCLUSION: No evidence to suggest ischemic myocardial changes at this time. Electronically signed by: Neil Garcia MD 03/11/2018 3:04 PM EDT
--- NOTE | 2018-03-11 15:08 | HHI.DCPOC ---
Discharge Care Plan Diagnosis: (1) Chest pain Goals to Promote Your Health * To prevent worsening of your condition and complications * To maintain your health at the optimal level Directions to Meet Your Goals Take your medications as prescribed Follow your dietary instruction Follow activity as directed Keep your appointments as scheduled Take your immunizations and boosters as scheduled If your symptoms worsen call your PCP, if no PCP go to Urgent Care Center or Emergency Room Smoking is Dangerous to Your Health. Avoid second hand smoke Call the 24-hour hour crisis hotline for domestic abuse at Efrain Leary March 11, 2018 15:08
--- NOTE | 2018-03-11 18:58 | EKG ---
Date Performed: 03/11/2018 Time Performed: 08:09:26 PTAGE: 78 years EKG: Baseline artifact present Sinus rhythm INFERIOR MYOCARDIAL INFARCTION ABNORMAL ECG probably No significant change from prior electrocardiog gloria. . PREVIOUS TRACING : 03/10/2018 03.31 DOCTOR: Yonas Tinsley Interpretating Date/Time 03/11/2018 18:57:33
[2018-03-11] MEDS ORDERED: SODIUM CHLORIDE 0.9% FLUSH 10 ML FLUSH IV FLUSH SCH (21:00)
[2018-03-11] MEDS ORDERED: CARVEDILOL 12.5 MG TAB PO SCH (21:00)
[2018-03-11] MEDS ORDERED: ATORVASTATIN 40 MG TAB PO SCH (21:00)
[2018-03-12] MEDS ORDERED: ISOSORBIDE MONONITRATE 60 MG CR TAB (IMDUR) PO SCH (07:00)
[2018-03-12] MEDS ORDERED: ASPIRIN 325 MG TAB PO SCH (09:00)
--- NOTE | 2018-03-13 16:06 | TR ---
Date Performed: 03/11/2018 Time Performed: 13:56:49 DOCTOR: Jamaal Cornejo DRUG LIST: CLINICAL HISTORY: CHEST PAIN REASON FOR TEST: Chest pain REASON FOR ENDING: OBSERVATION: CONCLUSION: Lexiscan stress test was performed under standard four minute protocol. Radionuclide was injected one minute prior to ending the test. No electrocardiographic abormalities were present to suggest ischemia. Nuclear imaging and interpretation are pending. COMMENTS:
== END 2018-03-11 15:58 | disposition home or self-care (01) ==
LOC: PHED 07:48 → PHEDA 09:05 → PH3A 09:44
PROVIDERS: ADMIT Hospitalist; ATTEND Hospitalist
DX: R07.89 Other chest pain (principal); I25.10 Atherosclerotic heart disease of native coronary artery without angina pectoris; I11.0 Hypertensive heart disease with heart failure; I50.9 Heart failure, unspecified; E78.5 Hyperlipidemia, unspecified; I25.2 Old myocardial infarction; J44.9 Chronic obstructive pulmonary disease, unspecified; E11.9 Type 2 diabetes mellitus without complications; M54.5 Low back pain; G89.29 Other chronic pain; M19.042 Primary osteoarthritis, left hand; Z95.1 Presence of aortocoronary bypass graft; Z79.899 Other long term (current) drug therapy; Z79.84 Long term (current) use of oral hypoglycemic drugs; Z79.82 Long term (current) use of aspirin
CPT/HCPCS: 78452; 93005; 93017; 99285; A9502; G0378; J2785